=== PATIENT | male | born 1990 | race Caucasian/White ===

== ENCOUNTER 2017-08-01 19:47 | Emergency (ER) | payer MEDICARE, MEDICAID ==
[2017-08-01] MEDS ORDERED: Ondansetron 4 MG/2 ML SDV IV ONE (20:00)
[2017-08-01] MEDS ORDERED: Sodium Chloride 0.9% 1,000 ML IV ONE (20:00)
[2017-08-01] MEDS ORDERED: Pantoprazole 40 MG Vial IVPUSH ONE (20:01)
--- NOTE | 2017-08-01 20:03 | EDM.PDOC ---
ED HPI GENERAL MEDICAL PROBLEM - General Chief Complaint: Abdominal Pain Stated Complaint: ABD PAINS, HEARTBURN, NAUSEA [id number] Time Seen by Provider: 08/01/17 20:01 Source of Information: Reports: Patient History Limitations: Reports: No Limitations - History of Present Illness INITIAL COMMENTS - FREE TEXT/NARRATIVE: saw pmd earlier given GI cocktail and schedule for US sunday. continue to have nausea & pain. states been having pain past few days but got worse today. did have oat meal & soup tonight but vomited all. mother states pt had this problem for many years never got eval' till now because it's worse now. Treatments [employer]: Reports: Other Medication(s) Epigastric Pain Score (Numeric/FACES): 7 - Related Data Allergies Allergy/AdvReac Type Severity Reaction Status Date / Time Sulfa (Sulfonamide Allergy Rash Verified 08/01/17 20:08 Antibiotics) Home Meds: Home Meds L.acidoph,Paracasei, B.lactis [Probiotic] 1 cap PO DAILY 08/01/17 [History] Multivitamin [Multi-Vitamin Daily] 1 tab PO DAILY 08/01/17 [History] Industry-3/DHA/Epa/Fish Oil [Fish Oil 1,000 mg Softgel] 1 cap PO DAILY 08/01/17 [ History] ED ROS GENERAL - Review of Systems Review Of Systems: ROS reveals no pertinent complaints other than HPI. ED EXAM, GI/ABD - Physical Exam Exam: See Below Exam Limited By: No Limitations General Appearance: Alert, WD/WN, Mild Distress, Other (pain) Ears: Hearing Grossly Normal Throat/Mouth: Normal Voice, No Airway Compromise Head: Atraumatic Neck: Non-Tender, Full Range of Motion Respiratory/Chest: No Respiratory Distress Cardiovascular: Regular Rate, Rhythm GI/Abdominal Exam: Tender, Other (epiG ). No: Distended, Guarding, Rigid, Rebound Neurological: Alert, Oriented, Normal Cognition, Normal Gait, No Motor/Sensory Deficits Psychiatric: Flat Affect Skin Exam: Warm, Dry, Normal Color Lymphatic: No Adenopathy Course - Vital Signs Last Recorded V/S: Last Vital Signs Temp 37.1 C 08/01/17 20:03 Pulse 96 08/01/17 20:03 Resp 16 08/01/17 20:03 BP 130/78 08/01/17 20:03 Pulse Ox 100 08/01/17 20:03 - Orders/Labs/Meds Orders: Active Orders 24 hr Category Date Time Status Abdomen Pelvis w Cont [CT] Urgent Exams 08/01/17 20:17 Taken Labs: Laboratory Tests 08/01/17 08/01/17 Range/Units 19:58 19:58 WBC 13.4 H (5.0-10.0) 10^3/uL RBC 4.34 L (4.6-6.2) 10^6/uL Hgb 13.5 L (14.0-18.0) g/dL Hct 38.6 L (40.0-54.0) % MCV 88.9 (80-100) fL MCH 31.1 (27.0-34.0) pg MCHC 35.0 (33.0-35.0) g/dL Plt Count 247 (150-450) 10^3/uL Neut % (Auto) 73.4 (42.2-75.2) % Lymph % (Auto) 20.4 L (20.5-50.1) % [place] % (Auto) 5.0 (2-8) % Eos % (Auto) 1.0 (1.0-3.0) % Baso % (Auto) 0.2 (0.0-1.0) % Sodium 142 (135-145) mmol/L Potassium 4.1 (3.6-5.0) mmol/L Chloride 106 (101-111) mmol/L Carbon Dioxide 29.0 (21.0-31.0) mmol/L Anion Gap 11.1 BUN 15 (7-18) mg/dL Creatinine 1.0 (0.6-1.3) mg/dL Est Cr Clr Drug Dosing 104.66 mL/min Estimated GFR (MDRD) > 60 BUN/Creatinine Ratio 15.00 Glucose 107 H (74-105) mg/dL Calcium 9.5 (8.4-10.2) mg/dl Total Bilirubin 0.9 (0.2-1.0) mg/dL AST 24 (10-42) IU/L ALT 32 (10-60) IU/L Alkaline Phosphatase 53 (42-121) IU/L Total Protein 6.8 (6.7-8.2) g/dl Albumin 4.6 (3.2-5.5) g/dl Globulin 2.2 Albumin/Globulin Ratio 2.09 Amylase 131 H (28-100) U/L Lipase 30 (22-51) U/L Meds: Medications Discontinued Medications Generic Name Dose Route Start Last Admin Trade Name Freq PRN Reason Stop Dose Admin Sodium Chloride 1,000 mls @ 999 mls/hr 08/01/17 20:00 08/01/17 20:09 Normal Saline IV 08/01/17 21:00 999 mls/hr .BOLUS ONE Administration Iopamidol 75 ml 08/01/17 20:16 08/01/17 20:50 Isovue-300 (61%) IVPUSH 08/01/17 20:17 75 ml ONETIME ONE Administration Ketorolac Tromethamine 15 mg 08/01/17 20:17 08/01/17 20:23 Toradol IVPUSH 08/01/17 20:18 15 mg ONETIME ONE Administration Metoclopramide HCl 10 mg 08/01/17 20:53 08/01/17 20:57 Reglan IVPUSH 08/01/17 20:54 10 mg ONETIME ONE Administration Morphine Sulfate 2 mg 08/01/17 20:53 08/01/17 20:59 Morphine IVPUSH 08/01/17 20:54 2 mg ONETIME ONE Administration Ondansetron HCl 4 mg 08/01/17 20:00 08/01/17 20:10 Zofran IV 08/01/17 20:01 4 mg ONETIME ONE Administration Pantoprazole Sodium 40 mg 08/01/17 20:01 08/01/17 20:14 Protonix Iv IVPUSH 08/01/17 20:02 40 mg ONETIME ONE Administration - Re-Assessments/Exams Free Text/Narrative Re-Assessment/Exam: 08/01/17 21:22 results discussed with pt & mother Departure - Departure Time of Disposition: 21:23 Disposition: Home, Self-Care 01 Condition: Good Clinical Impression: Gastroenteritis Abdominal pain Qualifiers: Abdominal location: epigastric Qualified Code(s): R10.13 - Epigastric pain - Discharge Information Instructions: Nausea and Vomiting, Adult, [id number] Forms: ED Department Discharge Additional Instructions: 1) AVOID SOLID FOODS NEXT 48 HOURS 2) FOLLOW UP AT CLINIC OR RECHECK NEEDED RX GIVEN; BENTYL 10MG BID PRN CRAMPS X 12 ZOFRAN 4MG ODT BID PRN NAUSEA IMODIUM QID PRN DIARRHOES - My Orders Last 24 Hours: My Active Orders 08/01/17 20:17 Abdomen Pelvis w Cont [CT] Urgent - Assessment/Plan Last 24 Hours: My Active Orders 08/01/17 20:17 Abdomen Pelvis w Cont [CT] Urgent
[2017-08-01] MEDS ORDERED: Iopamidol 612 MG/ML 75 ML Bottle IVPUSH ONE (20:16)
[2017-08-01] MEDS ORDERED: Ketorolac 30 MG/ML SDV IVPUSH ONE (20:17)
[2017-08-01 20:22] LABS: CHLORIDE,CL 106 mmol/L (101-111); SODIUM,NA 142 mmol/L (135-145)
[2017-08-01] MEDS ORDERED: Metoclopramide 10 MG/2 ML SDV IVPUSH ONE (20:53)
[2017-08-01] MEDS ORDERED: Morphine 2 MG/ML Syringe IVPUSH ONE (20:53)
== END 2017-08-01 21:34 | disposition home or self-care (01) ==
LOC: DL.ED 19:47
DX: K52.9 Noninfective gastroenteritis and colitis, unspecified (principal); Z88.2 Allergy status to sulfonamides
CPT/HCPCS: 36415; 74177; 80053; 82150; 83690; 85025; 96361; 96374; 96375; 99284; C9113; J1885; J2270; J2405; J2765; J7030; Q9967

== ENCOUNTER 2022-10-26 14:47 | Emergency (ER) | payer MEDICARE, MEDICAID | END 2022-10-26 15:36 | disposition left against medical advice (07) | LOC: DL.ED 14:47 | DX: Z53.21 Procedure and treatment not carried out due to patient leaving prior to being seen by health care provider (principal) ==

== ENCOUNTER 2024-05-14 22:09 | Emergency (ER) | payer MEDICARE, MEDICAID ==
[2024-05-14] MEDS ORDERED: Naloxone 2 MG/2 ML Syringe IVPUSH PRN ×2 (22:18→23:32)
[2024-05-14] MEDS: Ondansetron 4 MG/2 ML SDV IVPUSH ONE ×2 (22:27→23:01)
[2024-05-14 22:28] LABS: APPEARANCE,URINE SLIGHTLY CLOUDY (CLEAR); BILIRUBIN,URINE NEGATIVE (NEGATIVE); COLOR,URINE YELLOW (YELLOW); GLUCOSE,URINE NEGATIVE (NEGATIVE); KETONES,URINE NEGATIVE (NEGATIVE); LEUKOCYTE ESTERASE,URINE NEGATIVE (NEGATIVE); NITRITE,URINE NEGATIVE (NEGATIVE); OCCULT BLOOD,URINE LARGE (NEGATIVE); PH,URINE 5.5 (5.0-9.0); PROTEIN,URINE 30 (NEGATIVE); UROBILINOGEN,URINE 0.2 mg/dL (0.2-1.0)
[2024-05-14 22:28] LABS: BASOPHILS PERCENT AUTO 0.3 % (0.0-1.0); EOSINOPHILS PERCENT AUTO 3.4 % (1.0-3.0); HEMATOCRIT 47.5 % (40.0-54.0); HEMOGLOBIN 16.9 g/dL (14.0-18.0); LYMPHOCYTES PERCENT AUTO 36.7 % (20.5-50.1); MEAN CORPUSCULAR HGB CONC 35.6 g/dL (33.0-35.0); MONOCYTES PERCENT AUTO 6.6 % (2-8); PLATELET COUNT,PLT 298 10^3/uL (150-450); RED BLOOD CELL COUNT 5.46 10^6/uL (4.6-6.2); WHITE BLOOD CELL COUNT,WBC 15.8 10^3/uL (5.0-10.0)
[2024-05-14] MEDS: fentaNYL 100 MCG/2 ML SDV IVPUSH ONE ×4 (22:29→23:34)
[2024-05-14] MEDS: Sodium Chloride 0.9% 10 ML Syringe FLUSH PRN (22:41)
[2024-05-14 22:43] LABS: BACTERIA,URINE MODERATE /HPF (0-FEW/HPF); EPITHELIAL CELLS,URINE FEW /HPF (NOT SEEN); RBC,URINE PACKED /HPF (0-5); WBC,URINE 20-30 /HPF (0-5/HPF)
[2024-05-14 22:49] LABS: A/G RATIO 1.4; ALBUMIN 4.2 g/dL (3.4-5.0); ANION GAP 9.7 mEq/L (7-13); BILIRUBIN TOTAL 1.4 mg/dL (0.2-1.0); BUN/CREATININE RATIO 11.2 (No establ ref range); CREATININE 1.34 mg/dL (0.70-1.30); EST CRCL DRUG DOSING (CG) 73.31 mL/min; MAGNESIUM 2.1 mg/dL (1.8-2.4); POTASSIUM,K 3.7 mmol/L (3.5-5.1); PROTEIN TOTAL,TP 7.1 g/dL (6.4-8.2)
[2024-05-14] MEDS: Lactated Ringers 1,000 ML IV SCH (23:02)
[2024-05-14] MEDS: Iopamidol 612 MG/ML 100 ML Bottle IVPUSH ONE (23:03)
[2024-05-14] MEDS: Morphine 4 MG/ML Syringe IVPUSH PRN (23:56)
[2024-05-14] MEDS: cefTRIAXone 1 GM Vial IVPUSH ONE (23:57)
[2024-05-15] MEDS: Lactated Ringers 1,000 ML IV SCH ×2 (00:09→01:04)
== END 2024-05-15 02:02 ==
LOC: DL.ED 22:09
DX: N39.0 Urinary tract infection, site not specified (principal); N17.9 Acute kidney failure, unspecified; N20.2 Calculus of kidney with calculus of ureter; R74.02 Elevation of levels of lactic acid dehydrogenase [LDH]; Z88.2 Allergy status to sulfonamides
CPT/HCPCS: 36415; 71045; 74170; 80053; 81001; 83605; 83690; 83735; 84484; 85025; 93005; 96361; 96374; 96375; 96376; 99285-25; J0696; J2270; J2405; J3010; J3490; J7120; Q9967